=== PATIENT | female | born 1935 | race Caucasian/White ===

== ENCOUNTER → 2016-07-30 | Outpatient (CLI) | payer MEDICARE, OTHER ==
[~2016-07-30] MED LIST: EXFORGE 10 MG-31 TAB PO; MACROBID 100MG100 MG PO; METOPROLOL100 MG PO; MOBIC7.5 MG PO; VICODIN 5/500 T1 TAB PO; VITAMIN D1000 IU PO
--- NOTE | 2016-07-30 14:42 | RADIOLOGY REPORT PS360 ---
BONE DENSITOMETRY(HIP:LT SPINE HISTORY: POST MENOPAUSAL ORDERING PHYSICIAN: Venkatesh Charles MD PATIENT AGE: 81 years COMPARISON: None FINDINGS: The BMD measured at the right femoral neck is 0.6-0 g/cm squared with a T score of -3.0. This is considered osteoporosis according to the World Health Organization criteria. Fracture risk is high. Pharmacological treatment if not already prescribed should be started. IMPRESSION: Osteoporosis, high fracture risk, recommend treatment. Recommend follow-up exam July 2017
== END ==
LOC: RAD 13:00
DX: Z78.0 Asymptomatic menopausal state (principal); Z13.820 Encounter for screening for osteoporosis